=== PATIENT | female | born 1975 | race Caucasian/White ===

== ENCOUNTER → 2017-10-04 | Outpatient (CLI) | payer BC ==
--- NOTE | 2017-10-04 09:35 | MR ---
EXAMINATION TYPE: MR brain wo con DATE OF EXAM: 10/04/2017 COMPARISON: NONE HISTORY: 42-year-old female Epilepsy, unspecified, not intractable TECHNIQUE: Multiplanar, multisequence images of the brain and brainstem were acquired without IV con trast. Diffusion weighted imaging is performed. FINDINGS: No evidence for acute infarction, hemorrhage, mass effect, midline shift, herniation, effacement of b cheko cisterns, or extra-axial fluid collection. The ventricles and sulci are age-appropriate. Major intracranial flow voids are intact. T2/FLAIR weighted sequences show scattered bilateral perivascular spaces in the region of the basal g anglia. Prominent arachnoid granulations along the posterior aspect of the right transverse sinus incidentall y noted possibly adjacent small 1.5 cm right paramedian posterior arachnoid cyst. Symmetrical hippocampal volumes. No larson matter heterotopia identified. There is an empty sella. Otherwise, midline structures demonstrate normal morphology. The craniocerv ical junction is normal. Incidentally, numerous scalp lesions, approximately 4 on the right measuring up to 1.6 cm and one on the left measuring 9 mm. Mild mucosal thickening ethmoid air cells and frontal sinuses. Globes are intact. IMPRESSION: 1. No acute intracranial abnormality seen. 2. Empty sella. Clinical correlation is recommended as this is generally an incidental finding but ca n have an association with benign intracranial hypertension. 3. Incidental prominent arachnoid granulations along the right transverse sinus and adjacent small pr obable 1.5 cm arachnoid cyst in the posterior cranial fossa. Questionable clinical significance. 4. Multiple scalp lesions measuring up to 1.6 cm, possible sebaceous cysts.
[2017-10-04 10:08] LABS: ALT 22 U/L (9-52); AST 17 U/L (14-36); Albumin 3.9 g/dL (3.5-5.0); Alkaline Phosphatase 75 U/L (38-126); Anion Gap 13 mmol/L; Blood Urea Nitrogen 14 mg/dL (7-17); Calcium 9.7 mg/dL (8.4-10.2); Carbon Dioxide 27 mmol/L (22-30); Chloride 102 mmol/L (98-107); Glucose 109 mg/dL (74-99); Potassium 3.8 mmol/L (3.5-5.1); Sodium 142 mmol/L (137-145); Total Bilirubin 0.2 mg/dL (0.2-1.3)
[2017-10-04 10:25] LABS: T4, Free (Free Thyroxine) 0.91 ng/dL (0.78-2.19)
== END | disposition home or self-care (01) ==
LOC: RADMRIMAIN 08:13
PROVIDERS: ATTEND Nurse Practitioner Acute Care
DX: L98.8 Other specified disorders of the skin and subcutaneous tissue (principal); E55.9 Vitamin D deficiency, unspecified
CPT/HCPCS: 36415; 70551; 80053; 80177; 82306; 84439; 84443; 84481

== ENCOUNTER → 2018-09-16 | Outpatient (CLI) | payer BC ==
[2018-09-16 07:50] LABS: HCT 37.7 % (34.0-46.0); HGB 12.3 gm/dL (11.4-16.0); MCH 26.4 pg (25.0-35.0); MCHC 32.5 g/dL (31.0-37.0); MCV 81.1 fL (80.0-100.0); Mean Platelet Volume 6.2; Platelet Count 241 k/uL (150-450); RBC 4.65 m/uL (3.80-5.40); RDW 15.6 % (11.5-15.5); WBC 10.1 k/uL (3.8-10.6)
[2018-09-16 11:29] LABS: Albumin 4.3 g/dL (3.80-4.90); Albumin/Globulin Ratio 1.59 (1.60-3.17); Anion Gap 6.8 mmol/L (4.00-12.00); Calcium 9.4 mg/dL (8.7-10.3); Carbon Dioxide 29.2 mmol/L (21.6-31.8); Globulin 2.7 g/dL (1.6-3.3); Potassium 3.8 mmol/L (3.5-5.5); Total Bilirubin 0.3 mg/dL (0.3-1.2)
[2018-09-16 11:32] LABS: Vitamin D 25 Hydroxy 21.5 ng/mL (30.0-100.0)
[2018-09-16 11:37] LABS: T4, Free (Free Thyroxine) 1.1 ng/dL (0.80-1.80)
== END | disposition home or self-care (01) ==
LOC: LABWHC1 07:34
PROVIDERS: ATTEND Nurse Practitioner Acute Care
DX: E03.9 Hypothyroidism, unspecified (principal); E55.9 Vitamin D deficiency, unspecified; R56.9 Unspecified convulsions
CPT/HCPCS: 36415; 80053; 82306; 82607; 84207; 84439; 84443; 84481; 85027

== ENCOUNTER → 2018-09-16 | Outpatient (CLI) | payer BC ==
--- NOTE | 2018-09-16 10:29 | BD ---
EXAMINATION TYPE: Axial Bone Density DATE OF EXAM: 09/16/2018 COMPARISON: NONE CLINICAL HISTORY: Height: 5 FT 5 1/2 IN Weight: 260 FRAX RISK QUESTIONS: Family History (Parent hip fracture): YES History of Fracture in Adulthood: YES RISK FACTORS HISTORY OF: Active: SOMEWHAT Postmenopausal woman: LMP 2 WEEKS AGO MEDICATIONS: Thyroid Medications: YES Which medication: SYNTHROID How Lon YEARS Additional Medications: ZANTAC, SYNTHROID ,ZESTORECTIC,SEIZURE MEDS X 2 , ALLERGY MEDS, FLONASE , INH ALER NEEDED Additional History: EXAM MEASUREMENTS: Bone mineral densitometry was performed using the [facility]. Bone mineral density as measured about the Lumbar spine is: ----- L1-L4(G/cm2): 1.351 T Score Values are as follows: ----- L2: 2.0 ----- L3: 1.5 ----- L4: 0.5 ----- L1-L4: 1.4 BASELINE Bone mineral density about the R hip (g/cm2): 1.158 Bone mineral density about the L hip (g/cm2): 1.172 T Score values are as follows: -----R Neck: 0.9 -----L Neck: 1.0 -----R Total: 1.7 -----L Total: 1.7 BASELINE IMPRESSION: No evidence for osteoporosis or osteopenia. NOTE: T-SCORE=SD OF THE YOUNG ADULT MEAN.
--- NOTE | 2018-09-19 11:59 | MM ---
Reason for exam: screening (asymptomatic). Last mammogram was performed 1 year and 3 months ago. History: Patient is nulliparous. Family history of breast cancer in mother at age 45 and breast cancer in grandmother at age 52. Physical Findings: A clinical breast exam by your physician is recommended on an annual basis and results should be correlated with mammographic findings. MG 3D Screening Mammo W/Cad Bilateral CC and MLO view(s) were taken. Prior study comparison: June 28, 2017, mammogram, performed at [facility]. The breast tissue is heterogeneously dense. This may lower the sensitivity of mammography. There are benign appearing round calcifications bilaterally. There is no discrete abnormality. ASSESSMENT: Benign, BI-RAD 2 RECOMMENDATION: Routine screening mammogram of both breasts in 1 year.
== END | disposition home or self-care (01) ==
LOC: RADMAMWWP 07:09
PROVIDERS: ATTEND Family Medicine
DX: Z12.31 Encounter for screening mammogram for malignant neoplasm of breast (principal); G40.509 Epileptic seizures related to external causes, not intractable, without status epilepticus
CPT/HCPCS: 77063; 77067; 77080

== ENCOUNTER → 2019-03-28 | Outpatient (CLI) | payer BC ==
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
== END ==
LOC: SLEEP 16:02
PROVIDERS: ATTEND Internal Medicine Critical Care Medicine
DX: G40.89 Other seizures (principal); G40.909 Epilepsy, unspecified, not intractable, without status epilepticus; E66.9 Obesity, unspecified; E61.1 Iron deficiency; Z68.41 Body mass index [BMI] 40.0-44.9, adult; Z79.899 Other long term (current) drug therapy; Z79.82 Long term (current) use of aspirin; Z88.8 Allergy status to other drugs, medicaments and biological substances; Z91.040 Latex allergy status
CPT/HCPCS: 99211

== ENCOUNTER → 2020-06-18 | Outpatient (CLI) | payer BC ==
--- NOTE | 2020-06-19 13:32 | MM ---
Reason for exam: screening (asymptomatic). Last mammogram was performed 1 year and 9 months ago. History: Patient is nulliparous. Family history of breast cancer in mother at age 45 and breast cancer in grandmother at age 52. Physical Findings: A clinical breast exam by your physician is recommended on an annual basis and results should be correlated with mammographic findings. MG 3D Screening Mammo W/Cad Bilateral CC and MLO view(s) were taken. Prior study comparison: September 16, 2018, bilateral MG 3d screening mammo w/cad. June 28, 2017, mammogram, performed at [facility] [place]. The breast tissue is heterogeneously dense. This may lower the sensitivity of mammography. There are benign appearing round calcifications bilaterally. There is no discrete abnormality. ASSESSMENT: Benign, BI-RAD 2 RECOMMENDATION: Routine screening mammogram of both breasts in 1 year.
== END | disposition home or self-care (01) ==
LOC: RADMAMWWP 08:04
PROVIDERS: ATTEND Family Medicine
DX: Z12.31 Encounter for screening mammogram for malignant neoplasm of breast (principal)
CPT/HCPCS: 77063; 77067

== ENCOUNTER → 2021-01-27 | Outpatient (CLI) | payer BC | END | disposition home or self-care (01) | LOC: LABWHC1 10:21 | PROVIDERS: ATTEND Family Medicine | DX: U07.1 COVID-19 (principal) | CPT/HCPCS: U0003; C9803 ==

== ENCOUNTER → 2021-03-21 | Outpatient (CLI) | payer BC ==
[2021-03-21 15:19] LABS: HCT 37.4 % (37.2-46.3); HGB 12.2 g/dL (12.0-15.0); MCH 27.8 pg (27.0-32.0); MCHC 32.6 g/dL (32.0-37.0); MCV 85.2 fL (80.0-97.0); Mean Platelet Volume 9.8 fL (9.5-12.2); Platelet Count 224 X 10*3/uL (140-440); RBC 4.39 X 10*6/uL (4.10-5.20); WBC 8.95 X 10*3/uL (4.50-10.00)
[2021-03-21 21:17] LABS: African American GFR (CKD) 127.2 (60.0-200.0); Albumin 4.2 g/dL (3.8-4.9); Albumin/Globulin Ratio 1.53 (1.60-3.17); Anion Gap 16.4 mmol/L (4.00-12.00); BUN/Creat Ratio 18.02 Ratio (12.00-20.00); Blood Urea Nitrogen 10.9 mg/dL (9.0-27.0); Carbon Dioxide 19.7 mmol/L (21.6-31.8); Globulin 2.7 g/dL (1.6-3.3); Non-African American GFR(CKD) 109.8 (60.0-200.0); Potassium 3.7 mmol/L (3.5-5.5); Total Bilirubin 0.2 mg/dL (0.30-1.20); Total Protein 6.9 g/dL (6.2-8.2)
== END | disposition home or self-care (01) ==
LOC: LABWHC1 09:16
PROVIDERS: ATTEND Psychiatry & Neurology Neurology
DX: E03.9 Hypothyroidism, unspecified (principal); E55.9 Vitamin D deficiency, unspecified; E53.9 Vitamin B deficiency, unspecified; I10 Essential (primary) hypertension; F44.5 Conversion disorder with seizures or convulsions
CPT/HCPCS: 36415; 80053; 80177; 82306; 84207; 85027

== ENCOUNTER → 2021-09-05 | Outpatient (CLI) | payer BC ==
--- NOTE | 2021-09-08 10:11 | MM ---
Reason for exam: screening (asymptomatic). Last mammogram was performed 1 year and 3 months ago. History: Patient is nulliparous. Family history of breast cancer in mother at age 45 and breast cancer in grandmother at age 52. Physical Findings: A clinical breast exam by your physician is recommended on an annual basis and results should be correlated with mammographic findings. MG 3D Screening Mammo W/Cad Bilateral CC and MLO view(s) were taken. Prior study comparison: June 18, 2020, bilateral MG 3d screening mammo w/cad. September 16, 2018, bilateral MG 3d screening mammo w/cad. There are scattered fibroglandular densities. There are benign appearing round calcifications bilaterally. There is no discrete abnormality. ASSESSMENT: Benign, BI-RAD 2 RECOMMENDATION: Routine screening mammogram of both breasts in 1 year.
== END | disposition home or self-care (01) ==
LOC: RADMAMWWP 08:53
PROVIDERS: ATTEND Family Medicine
DX: Z12.31 Encounter for screening mammogram for malignant neoplasm of breast (principal); Z80.3 Family history of malignant neoplasm of breast
CPT/HCPCS: 77063; 77067

== ENCOUNTER → 2022-09-07 | Outpatient (CLI) | payer BC ==
--- NOTE | 2022-09-08 09:09 | MM ---
Reason for Exam: Screening (asymptomatic). Last screening mammogram was performed 12 month(s) ago. Patient History: Menarche at age 12. Patient has no children. Maternal grandmother had breast cancer, age 52. Mother had breast cancer, age 45. Last menstrual period: 09/05/2022 Risk Values: Miguelina 5 year model risk: 1.7%. NCI Lifetime model risk: 17.5%. Prior Study Comparison: 09/16/2018 Bilateral Screening Mammogram, [facility]. 06/18/2020 Bilateral Screening Mammogram, [facility]. 09/05/2021 Bilateral Screening Mammogram, [facility]. Tissue Density: There are scattered fibroglandular densities. Findings: Analyzed By CAD. There is no suspicious group of microcalcifications or new suspicious mass in either breast. Benign-appearing round calcifications bilaterally. Overall Assessment: Benign, BI-RAD 2 Management: Screening Mammogram of both breasts in 1 year. A clinical breast exam by your physician is recommended on an annual basis and results should be correlated with mammographic findings. Electronically signed and approved by: Yunier Cesar D.O.
== END | disposition home or self-care (01) ==
LOC: RADMAMWWP 14:53
PROVIDERS: ATTEND Family Medicine
DX: Z12.31 Encounter for screening mammogram for malignant neoplasm of breast (principal); Z80.3 Family history of malignant neoplasm of breast
CPT/HCPCS: 77063; 77067

== ENCOUNTER → 2023-09-30 | Outpatient (CLI) | payer BC ==
--- NOTE | 2023-10-03 20:43 | MM ---
Reason for Exam: Screening (asymptomatic). Last screening mammogram was performed 12 month(s) ago. Patient History: Menarche at age 12. First Full-Term at age 41. Late child-bearing (after 30). Postmenopausal. Maternal grandmother had breast cancer, age 52. Mother had breast cancer, age 45. Risk Values: Miguelina 5 year model risk: 1.8%. NCI Lifetime model risk: 17.8%. Prior Study Comparison: 06/28/2017 Screening Mammogram, [place]. 09/16/2018 Bilateral Screening Mammogram, [facility]. 06/18/2020 Bilateral Screening Mammogram, [facility]. 09/05/2021 Bilateral Screening Mammogram, [facility]. 09/07/2022 Bilateral MG 3D screening mammo w/cad, [facility]. Tissue Density: The breasts are heterogeneously dense, which may obscure small masses. Findings: Analyzed By CAD. Benign dermal calcifications on both sides. There is no suspicious group of microcalcifications or new suspicious mass in either breast. Overall Assessment: Benign, BI-RAD 2 Management: Screening Mammogram of both breasts in 1 year. . Patient should continue monthly self-breast exams. A clinical breast exam by your physician is recommended on an annual basis. This exam should not preclude additional follow-up of suspicious palpable abnormalities. Note on Miguelina scores and lifetime risk: 1. A [place] score greater than 3% is considered moderate risk. If this is the case, consider specialist referral to assess eligibility for a risk reducing agent. 2. If overall lifetime risk for the development of breast cancer is 20% or higher, the patient may qualify for future screening with alternating mammogram and breast MRI. Electronically signed and approved by: Jorge Luis Manjarrez M.D. Radiologist
== END | disposition home or self-care (01) ==
LOC: RADMAMWWP 06:54
PROVIDERS: ATTEND Family Medicine
DX: Z12.31 Encounter for screening mammogram for malignant neoplasm of breast (principal); Z78.0 Asymptomatic menopausal state; Z80.3 Family history of malignant neoplasm of breast
CPT/HCPCS: 77063; 77067

== ENCOUNTER → 2024-11-17 | Outpatient (CLI) | payer BC ==
--- NOTE | 2024-11-17 07:54 | MM ---
Reason for Exam: Screening (asymptomatic). Last mammogram was performed 1 year(s) and 2 month(s) ago. Patient History: Menarche at age 12. First Full-Term at age 41. Late child-bearing (after 30). Postmenopausal. Maternal grandmother had breast cancer, age 52. Mother had breast cancer, age 45. Risk Values: Miguelina 5 year model risk: 1.9%. NCI Lifetime model risk: 17.5%. Prior Study Comparison: 09/05/2021 Bilateral Screening Mammogram, [facility]. 09/07/2022 Bilateral MG 3D screening mammo w/cad, [facility]. 09/30/2023 Bilateral MG 3D screening mammo w/cad, [facility]. Tissue Density: There are scattered areas of fibroglandular density. Findings: Analyzed By CAD. There is no suspicious group of microcalcifications or new suspicious mass in either breast. Overall Assessment: Benign, BI-RAD 2 Management: Screening Mammogram of both breasts in 1 year. . Patient should continue monthly self-breast exams. A clinical breast exam by your physician is recommended on an annual basis. This exam should not preclude additional follow-up of suspicious palpable abnormalities. Note on Miguelina scores and lifetime risk: 1. A Miguelina score greater than 3% is considered moderate risk. If this is the case, consider specialist referral to assess eligibility for a risk reducing agent. 2. If overall lifetime risk for the development of breast cancer is 20% or higher, the patient may qualify for future screening with alternating mammogram and breast MRI. [facility], , 11/17/2024 7:50 AM. Electronically signed and approved by: Azeem Barry M.D. Radiologis
== END | disposition home or self-care (01) ==
LOC: RADMAMWWP 07:26
PROVIDERS: ATTEND Internal Medicine
DX: Z12.31 Encounter for screening mammogram for malignant neoplasm of breast (principal); R92.323 Mammographic fibroglandular density, bilateral breasts; Z78.0 Asymptomatic menopausal state; Z80.3 Family history of malignant neoplasm of breast
CPT/HCPCS: 77063; 77067